=== PATIENT | female | born 1980 | race Hispanic/Latino ===

== ENCOUNTER 2019-10-27 07:16 | Inpatient (IN) | payer BC, MEDICAID ==
[~2019-10-27] VITALS: Ht 167.6 cm; Wt 133.4 kg
[2019-10-27] VITALS (16 sets, daily range): BP systolic 111–128; BP diastolic 54–73
[2019-10-27] MEDS ORDERED: LACTATED RINGERS 1000ML 1,000 ML IV SCH (08:15)
[2019-10-27] MEDS ORDERED: CEFAZOLIN SODIUM 1 GM VIAL IVP PRN (08:15)
[2019-10-27] MEDS ORDERED: CEFAZOLIN SODIUM 1 GM VIAL ONE (08:29)
[2019-10-27] MEDS ORDERED: DEXAMETHASONE SOD PHOSPHATE 10MG/ML 1ML VIAL ONE (08:35)
[2019-10-27] MEDS ORDERED: ONDANSETRON HCL 4 MG/2 ML VIAL ONE (08:35)
[2019-10-27] MEDS ORDERED: PHENYLEPHRINE HCL 10 MG/ML 1ML VIAL IV ONE (08:35)
[2019-10-27] MEDS ORDERED: OXYTOCIN 10 USP UNITS/ML ONE ×2 (08:36→09:01)
[2019-10-27] MEDS ORDERED: DURAMORPH PF1 MG/ML 10ML AMP IV ONE (08:36)
[2019-10-27] MEDS ORDERED: EPHEDRINE SULFATE 50 MG/ML AMPULE ONE (08:36)
[2019-10-27 08:42] LABS: HEMATOCRIT 35.6 % (36-48); MEAN CORPUSCULAR HEMOGLOBIN 26.6 pg (27.0-33.0); NUCLEATED RED BLOOD CELLS 0.2 % (0.0-0.19); RED BLOOD CELL COUNT(AUTO) 4.29 MIL/uL (4.00-5.50)
[2019-10-27] MEDS ORDERED: CEFAZOLIN SODIUM 1 GM VIAL IVP ONE (08:49)
[2019-10-27 09:29] LABS: BILIRUBIN,URINE Negative (NEGATIVE); COLOR,URINE Yellow (YELLOW); GLUCOSE, URINE (UA) Negative (NEGATIVE); KETONES,URINE Negative (NEGATIVE); LEUKOCYTE ESTERASE ,URINE Moderate (NEGATIVE); NITRATE,URINE Negative (NEGATIVE); OCCULT BLOOD,URINE Negative (NEGATIVE); PH,URINE 6.5 (5.0-8.0); PROTEIN,URINE Negative (NEGATIVE); UROBILINOGEN,URINE 0.2 mg/dL (0.2-1.0)
[2019-10-27 09:40] LABS: APPEARANCE,URINE SLIGHTLY CLOUDY (CLEAR)
[2019-10-27 09:59] LABS: BACTERIA,URINE Few /HPF (None Seen); RBC,URINE None Seen /HPF (0-1)
[2019-10-27] MEDS ORDERED: SODIUM CHLORIDE 0.9% 10 ML VIAL IVP PRN (10:00)
[2019-10-27] MEDS ORDERED: MEPERIDINE-PF 75 MG/ML SYG IM PRN (10:00)
[2019-10-27] MEDS ORDERED: PROMETHAZINE HCL 25 MG/ML 1ML AMPULE IM PRN (10:00)
[2019-10-27] MEDS ORDERED: OXYTOCIN-LR 20 UNITS/1000 ML 1,000 ML IV PRN (10:00)
[2019-10-27] MEDS ORDERED: PREN-196 PO (11:30)
--- NOTE | 2019-10-27 13:50 | NUR ---
Referral for [facility] SW met with pt. who was holding TwinA, father of babies at bedside holding Twin B. Pt. reported that they have chosen to name Twin A Luis Antonio and Twin B Bismark Larson; other two children are being cared for by family. Pt. and spouse spoke of Twin A diagnosis of Down Syndrome and report that they were told months ago by social contact worker. SW spoke to parents of referral to [facility] and provided education on services provided by agency. Parents consented to referral and JAUN information signed by patient for referral. SW explained that [facility] would contact parents for follow up; pt. and spouse voiced an understanding. Pt. denied any history of depression, suicidal thoughts or ideations. Pt. denied any use of illicit substances, etoh or tobacco. Pt. denied any history of family violence. 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 All utilities are connected in the home and family has own transportation. Carseats reportedly in place; no WIC. Pt. has [id number] insurance. Pt. reported strong support system from family who will assist post discharge. Pt. voiced no other needs at this time. Referral faxed to [facility]. Addendum: 10/27/19 at 1548 by MIGUEL ROSE Amended: Links added.
[2019-10-27] MEDS: DEXTROSE 5 %-0.45 % NACL 1,000 ML IV PRN (18:30)
[2019-10-27] MEDS: HYDROCODONE/ACETAMINOPHEN 5/325 MG TAB PO PRN (21:57)
[2019-10-28] MEDS: DEXTROSE 5 %-0.45 % NACL 1,000 ML IV PRN ×2 (00:48→05:50)
[2019-10-28 03:12] VITALS: BP 127/73
[2019-10-28] MEDS: HYDROCODONE/ACETAMINOPHEN 5/325 MG TAB PO PRN ×4 (04:08→21:00)
--- NOTE | 2019-10-28 05:50 | NUR ---
NAM CATHETER F/C REMOVED , INTACT, TOLERATED WELL, ASHLEY CARE GIVEN Addendum: 10/28/19 at 0606 by CATIE FORREST LVN Amended: Links added.
[2019-10-28 07:02] LABS: HEMATOCRIT 30.7 % (36-48); MEAN CORPUSCULAR HEMOGLOBIN 26.1 pg (27.0-33.0); MEAN CORPUSCULAR HGB CONC 31.3 g/dL (32.0-36.0); MEAN CORPUSCULAR VOLUME 83.4 fL (79-99); NUCLEATED RED BLOOD CELLS 0.1 % (0.0-0.19); RED BLOOD CELL COUNT(AUTO) 3.68 MIL/uL (4.00-5.50); RED CELL DISTRIBUTION WIDTH 13.9 % (11.0-15.5); WHITE BLOOD COUNT (AUTO) 15.7 K/uL (4.8-10.8)
[2019-10-28 07:13] VITALS: BP 123/81
[2019-10-28] MEDS ORDERED: ACETAMINOPHEN-CODEINE 300/30MG TAB PO PRN (08:15)
[2019-10-28] MEDS ORDERED: ACETAMINOPHEN EXTRA STRENGTH 500 MG TABLET PO PRN (08:15)
[2019-10-28] MEDS ORDERED: BISACODYL 10 MG SUPP.RECT RC PRN (08:15)
[2019-10-28] MEDS: DOCUSATE SODIUM 100 MG CAP PO SCH ×2 (08:32→20:59)
[2019-10-28] MEDS: SIMETHICONE 80 MG TAB.CHEW PO PRN ×4 (08:32→20:59)
[2019-10-28] MEDS: IBUPROFEN 800 MG TAB PO SCH ×2 (08:33→17:05)
[2019-10-28] MEDS ORDERED: IBUPROFEN 800 MG TAB PO SCH (10:00)
[2019-10-28 10:12] LABS: HEPATITIS Bs ANTIGEN SCREEN P Negative (Negative)
--- NOTE | 2019-10-28 10:30 | NUR ---
PATIENT UP AND AMBULATING IN HALLWAY AND TOLERATED ACTIVITY WELL.
[2019-10-28 11:40] VITALS: BP 114/80
[2019-10-28 16:06] VITALS: BP 118/71
--- NOTE | 2019-10-28 17:00 | NUR ---
UP AMBULATING IN HALLWAY AND WAS GIVEN SCHEDULED MOTRIN FOR COMFORT.
--- NOTE | 2019-10-28 19:15 | NUR ---
REPORT GIVEN TO Baldo KATHLEEN RN AND PATIENT CARE TRANSFERED AT THIS TIME.
[2019-10-28 19:30] VITALS: BP 122/71
[2019-10-28 23:36] VITALS: BP 110/58
[2019-10-29] MEDS: IBUPROFEN 800 MG TAB PO SCH ×3 (01:51→16:11)
[2019-10-29 03:02] VITALS: BP 125/70
[2019-10-29 07:12] VITALS: BP 140/82
--- NOTE | 2019-10-29 08:30 | NUR ---
DR. BROWN ROUNDED AND DISCHARGED PT TO HOME IF BABY'S WERE DISCHARGED, IF NOT INSTRUCTED PATIENT SHE COULD STAY ANOTHER DAY. PATIENT INDICATED WANTING TO STAY IF HER BABY RUBENS WAS NOT DISCHARGED.
[2019-10-29] MEDS: DOCUSATE SODIUM 100 MG CAP PO SCH ×2 (09:09→21:52)
[2019-10-29] MEDS: SIMETHICONE 80 MG TAB.CHEW PO PRN ×3 (09:09→21:52)
--- NOTE | 2019-10-29 11:00 | NUR ---
PATIENT WAS MADE AWARE OF BABY "RUBENS" NOT GOING HOME AND INDICATED SHE WANTED TO STAY. PATIENT WAS MADE AWARE OF DOCTOR'S KEVIN'S ORDER AND PATIENT WAS HAPPY TO KNOW SHE COULD STAY WITH HER BABIES. PATIENT UP AMBULATING IN HALLWAY AND TOLERATING ACTIVITY VERY WELL. SHE ALSO INDICATED BEING ABLE TO HAVE A BOWEL MOVEMENT AFTER DRINKING THE PRUNE JUICE GIVEN.
[2019-10-29 11:20] VITALS: BP 128/85
[2019-10-29 16:07] VITALS: BP 129/66
--- NOTE | 2019-10-29 16:10 | NUR ---
PATIENT WAS GIVEN MOTRIN AT THIS TIME SCHEDULED FOR C/O PAIN TO LEFT SIDE OF INCISION.
[2019-10-29 19:40] VITALS: BP 143/82
[2019-10-29] MEDS: HYDROCODONE/ACETAMINOPHEN 5/325 MG TAB PO PRN (21:53)
[2019-10-29 23:38] VITALS: BP 127/72
[2019-10-30] MEDS: IBUPROFEN 800 MG TAB PO SCH ×2 (00:11→08:36)
[2019-10-30 03:40] VITALS: BP 137/84
[2019-10-30 08:30] VITALS: BP 135/77
[2019-10-30] MEDS: SIMETHICONE 80 MG TAB.CHEW PO PRN (08:35)
[2019-10-30] MEDS: DOCUSATE SODIUM 100 MG CAP PO SCH (08:35)
[2019-10-30 11:55] VITALS: BP 143/87
--- NOTE | 2019-10-30 13:10 | NUR ---
DISCHARGE PT LEFT UNIT VIA WHEELCHAIR, WITH BABIES IN ARMS, ACCOMPANIED BY SIGNIFICANT OTHER. DENIED PAIN AND HAD NO COMPLAINTS. BABIES STRAPPED IN CAR SEATS. PT AND BABIES TRANSPORTED BY PERSONAL VEHICLE.
== END 2019-10-30 13:10 | disposition home or self-care (01) | DRG 785 ==
LOC: EDH 07:16 → LDH 07:17 → OBSVTOIN 07:17 → WSH 11:05
PROVIDERS: ADMIT Specialist; ATTEND Specialist
PROC: 0UB70ZZ Excision of Bilateral Fallopian Tubes, Open Approach (ICD-10-PCS; 2019-10-27)
PROC: 10D00Z1 Extraction of Products of Conception, Low, Open Approach (ICD-10-PCS; principal; 2019-10-27 08:45)
DX: O60.23X0 Term delivery with preterm labor, third trimester, not applicable or unspecified (principal); O30.043 Twin pregnancy, dichorionic/diamniotic, third trimester; O32.1XX1 Maternal care for breech presentation, fetus 1; Z3A.36 36 weeks gestation of pregnancy; Z37.2 Twins, both liveborn; Z30.2 Encounter for sterilization
CPT/HCPCS: 36415; 59510; 76815; 81001; 85027; 86592; 86850; 86900; 86901; 87088; 87340; A4344; G0378; J0690; J1100; J2274; J2370; J2405; J2590; J3490; J7120

== ENCOUNTER 2022-03-14 18:36 | Emergency (ER) | payer OTHER, MEDICAID ==
[~2022-03-14] VITALS: Ht 167.6 cm; Wt 136.1 kg
[~2022-03-14 18:36] MED LIST: PREN-196 PO
[2022-03-14] MEDS ORDERED: LACTATED RINGERS 1000ML 1,000 ML IV ONE (19:30)
[2022-03-14 20:02] LABS: BASOPHILS % (AUTO) 0.5 % (0.0-5.0); EOSINOPHILS % (AUTO) 1.9 % (0.0-8.0); HEMATOCRIT 40.6 % (36-48); LYMPHOCYTES % (AUTO) 26.3 % (21.0-51.0); MEAN CORPUSCULAR HGB CONC 32.8 g/dL (32.0-36.0); MEAN CORPUSCULAR VOLUME 88.5 fL (79-99); MONOCYTES % (AUTO) 6.1 % (3.0-13.0); NEUTROPHILS % (AUTO) 64.9 % (40.0-77.0); NUCLEATED RED BLOOD CELLS 0.2 % (0.0-0.19); PLATELET COUNT (AUTO) 223 K/uL (130-400); RED BLOOD CELL COUNT(AUTO) 4.59 MIL/uL (4.00-5.50); RED CELL DISTRIBUTION WIDTH 12.9 % (11.0-15.5); WHITE BLOOD COUNT (AUTO) 9.3 K/uL (4.8-10.8)
[2022-03-14 20:13] LABS: APPEARANCE,URINE CLOUDY (CLEAR); BILIRUBIN,URINE NEGATIVE (NEGATIVE); COLOR,URINE LIGHT-BROWN (YELLOW); GLUCOSE, URINE (UA) NEGATIVE (NEGATIVE); KETONES,URINE NEGATIVE (NEGATIVE); LEUKOCYTE ESTERASE ,URINE 75 Leu/uL (NEGATIVE); NITRATE,URINE NEGATIVE (NEGATIVE); OCCULT BLOOD,URINE LARGE (NEGATIVE); PROTEIN,URINE 50 mg/dL (NEGATIVE); UROBILINOGEN,URINE 0.2 mg/dL (0.2-1.0)
[2022-03-14 20:14] LABS: CREATININE 0.7 mg/dL (0.5-1.5); POTASSIUM 3.6 mmol/L (3.5-5.1)
[2022-03-14 20:20] LABS: BACTERIA,URINE FEW /HPF (None Seen); MUCUS,URINE RARE LPF (None Seen); RBC,URINE 51-100 /HPF (0-1); SQUAMOUS EPITHELIAL CELL,UR FEW /HPF (0-2); WBC,URINE >100 /HPF (0-1)
[2022-03-14 20:23] LABS: ALBUMIN 3.6 g/dL (3.5-5.0); TOTAL PROTEIN, SERUM 7.3 g/dL (6.0-8.3)
[2022-03-14] MEDS ORDERED: IOHEXOL 350 MG/ML 100ML INFUS..BTL IV ONE (20:35)
[2022-03-14] MEDS ORDERED: METH4TAB3 PO (22:22)
[2022-03-14] MEDS ORDERED: SOLU-MEDROL 125MG VIAL IVP ONE (22:30)
[2022-03-14 22:31] VITALS: BP 127/78
== END 2022-03-14 22:39 | disposition home or self-care (01) ==
LOC: EDH 18:36
DX: S60.222A Contusion of left hand, initial encounter (principal); S30.1XXA Contusion of abdominal wall, initial encounter; S20.212A Contusion of left front wall of thorax, initial encounter; M79.18 Myalgia, other site; M54.2 Cervicalgia; Z88.1 Allergy status to other antibiotic agents; Z88.2 Allergy status to sulfonamides; V49.49XA Driver injured in collision with other motor vehicles in traffic accident, initial encounter; Y93.89 Activity, other specified; Y92.89 Other specified places as the place of occurrence of the external cause; Y99.8 Other external cause status
CPT/HCPCS: 99285; 70450; 96374; 96361; 84484; 80053; 85025; 87088; 81001; 81025; 36415; 73120; 72125; 71260; 74177; J2930; Q9967

== ENCOUNTER → 2023-01-23 | Outpatient (CLI) | payer BC ==
[~2023-01-23] MED LIST changes: +METH4TAB3 PO
== END | disposition home or self-care (01) ==
LOC: RAH 14:21
PROVIDERS: ATTEND Physician Assistant
DX: Z12.31 Encounter for screening mammogram for malignant neoplasm of breast (principal)
CPT/HCPCS: 77067

== ENCOUNTER → 2023-08-14 | Outpatient (CLI) | payer OTHER | END | disposition home or self-care (01) | LOC: OIH 08:32 | PROVIDERS: ATTEND Internal Medicine Cardiovascular Disease | DX: Z13.6 Encounter for screening for cardiovascular disorders (principal) | CPT/HCPCS: 75571 ==

== ENCOUNTER → 2025-03-06 | Outpatient (CLI) | payer BC | END | disposition home or self-care (01) | LOC: RAH 08:32 | PROVIDERS: ATTEND Internal Medicine | DX: Z12.31 Encounter for screening mammogram for malignant neoplasm of breast (principal) | CPT/HCPCS: 77067 ==